=== PATIENT | male | born 1975 | race Two or more races ===

== ENCOUNTER 2017-07-13 21:26 | Observation (INO) | payer MEDICAID, OTHER ==
[~2017-07-13] VITALS: Ht 175.3 cm; Wt 90.7 kg
[2017-07-13] MEDS ORDERED: SODIUM CHLORIDE 0.9% 1,000 ML IV ONE (21:42)
[2017-07-13] MEDS ORDERED: ASPirin 81 mg TAB PO ONE (21:45)
[2017-07-13] MEDS ORDERED: CLOPIDOGREL 300 MG TAB PO ONE (21:45)
[2017-07-13] MEDS ORDERED: ONDANSETRON HCL 4 MG/2 ML VIAL IV ONE (21:45)
[2017-07-13] MEDS ORDERED: NITROGLYCERIN 0.4MG/HR TOPICAL PATCH TD ONE (21:45)
[2017-07-13] MEDS ORDERED: MORPHINE SULF INJ 2 MG/ML SYRINGE 1ML IV ONE (21:45)
[2017-07-13] MEDS ORDERED: HYDROmorphone HCL 2 MG/ML VL IV ONE (22:00)
[2017-07-13 22:02] LABS: Basophils # (auto) 0 uL; Basophils % (auto) 0.5 % (0.0-2.0); Eosinophils # (auto) 0.1 uL; Eosinophils % (auto) 1.5 % (0.0-7.0); Hemoglobin 12.3 g/dL (13.5-17.5); Lymphocytes # (auto) 2.4 uL; Lymphocytes % (auto) 27.1 % (10.0-50.0); Mean Corpuscular Hemoglobin 24.6 pg (28.0-32.0); Mean Corpuscular Hgb Conc. 32.4 g/dL (32.0-36.0); Mean Corpuscular Volume 75.9 fL (80.0-100.0); Mean Platelet Volume 7.7 fL (6.9-10.8); Monocytes # (auto) 0.9 uL; Monocytes % (auto) 9.5 % (0.0-12.0); Neutrophils # (auto) 5.5 uL; Neutrophils % (auto) 61.4 % (37.0-80.0); Platelet Count (auto) 296 10^3/uL (140-450); Red Cell Distribution Width 16.4 % (11.8-14.3)
[2017-07-13] MEDS ORDERED: HEPARIN SODIUM (PORCINE) 5000 UNITS/ML 1ML VIAL ONE (22:07)
[2017-07-13 22:16] LABS: INR 0.91 (0.9-1.15); Partial Thromboplastin Time 20.9 sec (22.64-33.71); Prothrombin Time 9.9 sec (9.37-12.3)
[2017-07-13] MEDS ORDERED: IOHEXOL 350 MG/ML 100ML IJ ONE (22:28)
[2017-07-13 22:29] LABS: Albumin 4.1 g/dL (3.4-5.0); Alkaline Phosphatase 66 U/L (45-117); Anion Gap 9 (5-15); Aspartate Aminotransferase 14 U/L (15-37); BUN/Creatinine Ratio 15.8; Bilirubin, Total 0.2 mg/dL (0.2-1.0); Blood Urea Nitrogen 18 mg/dL (7-18); Calcium 8.7 mg/dL (8.5-10.1); Carbon Dioxide 27 mmol/L (21-32); Chloride 104 mmol/L (98-107); GFR African American 90 mL/min; GFR Non-African American 74 mL/min; Glucose 105 mg/dL (74-106); Magnesium 2.4 mg/dL (1.6-2.6); Potassium 3.4 mmol/L (3.5-5.1); Sodium 140 mmol/L (136-145); Total Protein 8.3 g/dL (6.4-8.2)
[2017-07-13 22:33] LABS: B-Type Natriuretic Peptide 19.66 pg/mL (0-100)
[2017-07-13 22:34] LABS: Temperature: 21.5 C (20.0-25.0)
[2017-07-13] MEDS ORDERED: HEPARIN SODIUM (PORCINE) 5000 UNITS/ML 1ML VIAL IV ONE (22:45)
[2017-07-14] MEDS ORDERED: KETOROLAC TROMETH 30 MG/ML 1ML VIAL IV ONE (00:45)
[2017-07-14 03:30] LABS: Cholesterol 119 mg/dL (< 200); HDL Cholesterol 47 mg/dL (40-59); LDL Cholesterol 73 mg/dL (< 100); Triglycerides 83 mg/dL (< 150)
[2017-07-14 03:32] VITALS: BP 125/78
== END 2017-07-14 04:13 | disposition home or self-care (01) | DRG 203 ==
LOC: ER 21:30 → OVERFLOW 21:45 → ER 07-14 04:13
PROVIDERS: ADMIT Family Medicine; ATTEND Family Medicine
DX: R07.2 Precordial pain (principal); F17.210 Nicotine dependence, cigarettes, uncomplicated; R11.2 Nausea with vomiting, unspecified; Z86.718 Personal history of other venous thrombosis and embolism; Z86.711 Personal history of pulmonary embolism
CPT/HCPCS: 36415; 71010; 71275; 80053; 80061; 80307; 80320; 82550; 83735; 83880; 84443; 84484; 85025; 85379; 85610; 85730; 93005; 96361; 96374; 96375; 99291; G0378; J1170; J1644; J1885; J2270; J2405; Q9967